=== PATIENT | male | born 1950 ===

== ENCOUNTER → 2019-01-01 08:20 | Day surgery (SDC) | payer MEDICARE, OTHER ==
[~2019-01-01 08:20] MED LIST: Bupivacaine 0.25% SDV PF* 10 ML VIAL INJ ONE; Lidocain 1% EPI 1:100,000 * 30 ML MDV ONE
[2019-01-01 10:29] VITALS: BP 144/76
--- NOTE | 2019-01-01 12:04 | OP ---
DATE OF OPERATION: 01/01/19 [facility] DATE OF : 46 SURGEON: Paul Kay MD POLE INCISOR OPERATOR: BRITTON Albright ANESTHESIOLOGIST: None. ANESTHESIA: Local only with 0.25% Marcaine. PRE-OP DIAGNOSIS: Right index, middle, and ring trigger fingers. POST-OP DIAGNOSIS: Right index, middle, and ring trigger fingers. OPERATIVE PROCEDURES: 1. Right index trigger finger release. 2. Right middle trigger finger release. 3. Right ring trigger finger release. INDICATIONS: Bello has some chronic trigger fingers; the worst is the ring finger. We talked about risks and benefits. He wanted to proceed. ESTIMATED BLOOD LOSS: 2 mL. COMPLICATIONS: None. FINDINGS: See above and below. DESCRIPTION OF PROCEDURE: Bello was seen in the preoperative holding area. The correct side, site, and procedure were identified. We came back to the operating room. The arm was prepped and draped in the usual fashion. I had already infiltrated the operative area with 0.25% Marcaine in the preoperative holding area. A time-out was performed. The arm was exsanguinated with the Esmarch and the tourniquet was inflated to 225 mmHg. I began by making longitudinal incisions over the A1 bernadette area of the index, middle, and ring fingers. Dissection was carried down and full- thickness flaps were bluntly raised off the tendon sheaths of each finger. I then placed the Ragnell retractors in the ring finger wound and protected the digital nerves. There was a lot of tenosynovitis. This was all excised. I then incised the A1 bernadette longitudinally along the radial third. The release was completed distally and proximally with the tenotomy scissors. I then in similar fashion completed the A1 bernadette release of the middle finger. There was less tenosynovitis there. I then moved to the index finger, placed the retractors, and completed the A1 bernadette release in similar fashion. Once I confirmed that the A1 pulleys were released on all 3 fingers, I had him flex and extend the fingers multiple times , there was no catching. We irrigated out the wounds. Skin was closed with 4- 0 nylon suture. Wounds were dressed with Xeroform, 4x4s, sterile Webril, and an Bradley bandage. He was then taken to the recovery room in stable condition. [id number]/[facility] #: [id number] JULIÁN
== END | disposition home or self-care (01) ==
LOC: OREAST 08:20
PROVIDERS: ATTEND Orthopaedic Surgery Hand Surgery
DX: M65.321 Trigger finger, right index finger (principal); M65.331 Trigger finger, right middle finger; M65.341 Trigger finger, right ring finger; Z87.891 Personal history of nicotine dependence; M19.011 Primary osteoarthritis, right shoulder
CPT/HCPCS: J3490